=== PATIENT | male | born 1950 | race Caucasian/White ===

== ENCOUNTER 2018-04-25 12:43 | Outpatient (CLI) | payer MEDICARE | END 2018-04-25 23:59 | disposition home or self-care (01) | LOC: RAD 12:43 | PROVIDERS: ATTEND Nurse Practitioner | DX: M19.071 Primary osteoarthritis, right ankle and foot (principal) ==

== ENCOUNTER → 2018-07-29 | Outpatient (CLI) | payer MEDICARE ==
[~2018-07-29] MED LIST: LACT1CAP37 PO
[2018-07-29 09:28] LABS: BASOPHILS # (AUTO) 0.01 x10^3/uL (0-0.1); BASOPHILS % (AUTO) 0 % (0-1); EOSINOPHILS # (AUTO) 0.11 x10^3/uL (0-0.4); EOSINOPHILS % (AUTO) 2 % (1-7); LYMPHOCYTES # (AUTO) 1.28 x10^3/uL (1-3.4); LYMPHOCYTES % (AUTO) 21 % (22-44); MD NO; MEAN CORPUSCULAR HEMOGLOBIN 31.9 pg (27.5-34.5); MEAN CORPUSCULAR HGB CONC 34.6 g/dL (33.2-36.2); MEAN CORPUSCULAR VOLUME 92.3 fL (81-97); MEAN PLATELET VOLUME 6.6 fL (7.4-10.4); MONOCYTES # (AUTO) 0.42 x10^3/uL (0.2-0.8); MONOCYTES % (AUTO) 7 % (2-9); NEUTROPHILS # (AUTO) 4.39 x10^3/uL (1.8-6.8); NEUTROPHILS % (AUTO) 71 % (42-75); PLATELET COUNT 259 x10^3/uL (130-400); RED BLOOD COUNT 5.24 x10^6/uL (4.38-5.82); RED CELL DISTRIBUTION WIDTH 12.1 % (9.4-14.8)
[2018-07-29 09:39] LABS: INTERNATIONAL NORMALIZED RATIO 1.03 (0.93-1.1); PROTHROMBIN TIME 10.8 Seconds (9.6-11.5)
[2018-07-29 09:41] LABS: ANION GAP 8 mmol/L (5-15); CALCIUM 8.7 mg/dL (8.5-10.1); CHLORIDE 110 mmol/L (98-107); CREATININE 0.87 mg/dL (0.7-1.3)
[2018-07-29 10:21] LABS: HEMOGLOBIN A1C 4.9 % (4.2-6.3)
== END | disposition home or self-care (01) ==
LOC: STAR 08:11
PROVIDERS: ATTEND Orthopaedic Surgery
DX: Z01.818 Encounter for other preprocedural examination (principal); M17.12 Unilateral primary osteoarthritis, left knee
CPT/HCPCS: 36415; 80048; 83036; 85025; 85610; 85730; 87081; 93005

== ENCOUNTER 2018-08-02 06:01 | Day surgery (SDC) | payer MEDICARE ==
[~2018-08-02] VITALS: Ht 175.3 cm; Wt 79.0 kg
[2018-08-02] MEDS ORDERED: ACETAMINOPHEN 650 MG/20.3 ML UDC PO PRN (06:30)
[2018-08-02] MEDS ORDERED: ONDANSETRON 4 MG TABLET PO PRN (06:30)
[2018-08-02] MEDS ORDERED: SENNA/DOCUSATE TABLET PO PRN (06:30)
[2018-08-02] MEDS ORDERED: ZOLPIDEM 5MG TABLET PO PRN (06:30)
[2018-08-02] MEDS ORDERED: ONDANSETRON 2MG/ML, 2ML IV PRN ×2 (06:30→07:30)
[2018-08-02] MEDS ORDERED: SCOPOLAMINE PATCH, 1.5MG PATCH.TD72 TD ONE (06:30)
[2018-08-02] MEDS ORDERED: HYDROcodone/APAP 5/325 TABLET PO PRN (06:30)
[2018-08-02] MEDS ORDERED: OXYcodone IR 5MG TABLET PO PRN (06:30)
[2018-08-02] MEDS ORDERED: TRANEXAMIC ACID 100 MG/ML, 10ML ONE ×2 (06:32)
[2018-08-02] MEDS ORDERED: ROPIvacaine/PF 0.5%, 20 ML ONE (06:32)
[2018-08-02] MEDS ORDERED: KETOROLAC 60 MG/2 ML ONE (06:32)
[2018-08-02] MEDS ORDERED: SODIUM CHLORIDE 0.9% 50 ML ONE (06:33)
[2018-08-02] MEDS ORDERED: VANCOMYCIN 1,000 MG ONE (06:33)
[2018-08-02] MEDS ORDERED: EPINEPHRINE 1 MG/ML, 1ML ONE (06:33)
[2018-08-02] MEDS ORDERED: ROPivacaine/PF 0.2%, 10 ML ONE (06:54)
[2018-08-02] MEDS ORDERED: GABAPENTIN 300 MG CAPSULE PO ONE (07:00)
[2018-08-02] MEDS ORDERED: ACETAMINOPHEN 500 MG TABLET PO ONE (07:00)
[2018-08-02] MEDS: LACTATED RINGERS 1,000 ML IV SCH ×2 (07:14→11:07)
[2018-08-02] MEDS ORDERED: FENTANYL PF 250 MCG/5ML ONE ×2 (07:23→08:42)
[2018-08-02] MEDS ORDERED: MIDAZOLAM 1 MG/ML, 2ML ONE (07:23)
[2018-08-02] MEDS ORDERED: PROMETHAZINE 25 MG SUPP PR PRN (07:30)
[2018-08-02] MEDS ORDERED: PROMETHAZINE 25 MG/ML, 1ML IM PRN ×2 (07:30)
[2018-08-02] MEDS ORDERED: OXYcodone 5 MG/5 ML ORAL.SOL UDC PO PRN (07:30)
[2018-08-02] MEDS ORDERED: MORPHINE SULFATE 4 MG/ML, 1ML IVPush PRN (07:30)
[2018-08-02] MEDS ORDERED: PROMETHAZINE 12.5 MG SUPP PR PRN (07:30)
[2018-08-02] MEDS ORDERED: ONDANSETRON ODT 8 MG PO PRN (07:30)
[2018-08-02] MEDS ORDERED: MEPERIDINE/PF 25MG/0.5ML IVPush PRN (07:30)
[2018-08-02] MEDS ORDERED: hydrALAzine 20 MG/ML, 1ML IV PRN (07:30)
[2018-08-02] MEDS ORDERED: PROMETHAZINE 25 MG/ML, 1ML IV PRN (07:30)
[2018-08-02] MEDS ORDERED: HYDROmorphone 2 MG/ML, 1ML IVPush PRN (07:30)
[2018-08-02] MEDS ORDERED: LABETALOL 5MG/ML, 20ML IV PRN (07:30)
[2018-08-02] MEDS ORDERED: CEFAZOLIN 1,000 MG ONE (08:35)
[2018-08-02] MEDS ORDERED: PROPOFOL 10 MG/ML, 20ML ONE (08:35)
[2018-08-02] MEDS ORDERED: NEOSTIGMINE 1 MG/ML, 10ML ONE (08:35)
[2018-08-02] MEDS ORDERED: GLYCOPYRROLATE 0.2MG/1ML, 5ML ONE (08:35)
[2018-08-02] MEDS ORDERED: ROCURONIUM 10MG/ML,5ML ONE (08:35)
[2018-08-02] MEDS ORDERED: BISACODYL 10 MG SUPP PR PRN (09:00)
[2018-08-02] MEDS ORDERED: DOCUSATE 100 MG CAPSULE PO SCH (09:00)
[2018-08-02] MEDS ORDERED: MAGNESIUM HYDROXIDE 8%, 30ML UDC PO PRN (09:00)
[2018-08-02] MEDS ORDERED: MEPERIDINE/PF 25MG/ML,1ML ONE (09:46)
[2018-08-02] MEDS ORDERED: OXYcodone 5 MG/5 ML ORAL.SOL UDC ONE (09:46)
[2018-08-02] MEDS ORDERED: ONDANSETRON 2MG/ML, 2ML ONE (09:53)
[2018-08-02] MEDS ORDERED: FENTANYL PF 100 MCG/2ML ONE (10:02)
[2018-08-02] MEDS: FENTANYL PF 100 MCG/2ML IV PRN ×3 (10:04→10:15)
[2018-08-02] MEDS ORDERED: DIPHENHYDRAMINE 25 MG CAPSULE PO PRN (11:00)
[2018-08-02] MEDS ORDERED: NS + 20MEQ KCL 1,000 ML IV SCH (11:00)
[2018-08-02] MEDS ORDERED: HYDROmorphone 1 MG/ML, 1ML INJ IV PRN (11:00)
[2018-08-02 13:10] VITALS: BP 123/67
[2018-08-02] MEDS ORDERED: TAMSULOSIN 0.4 MG CAP.ER.24H PO ONE (15:00)
[2018-08-02] MEDS ORDERED: CEFAZOLIN 2,000 MG in SODIUM CHLORIDE 0.9% 50 ML IVPB SCH (17:00)
[2018-08-02] MEDS ORDERED: OXYC5TAB3 PO (17:42)
[2018-08-02] MEDS ORDERED: TRAM50TA2 PO (17:47)
[2018-08-02] MEDS ORDERED: MELO7.5T31 PO (17:48)
[2018-08-02] MEDS ORDERED: ASPIRIN 81 MG TABLET EC PO SCH (18:00)
[2018-08-03] MEDS ORDERED: DEXAMETHASONE 4 MG/ML, 1ML IVPush SCH (06:00)
== END 2018-08-02 18:45 | disposition home or self-care (01) ==
LOC: OUT 06:01 → EDSTATUS 07:00 → 4NOR 10:38 → OUT 18:45
PROVIDERS: ATTEND Orthopaedic Surgery
DX: M17.12 Unilateral primary osteoarthritis, left knee (principal); T84.84XA Pain due to internal orthopedic prosthetic devices, implants and grafts, initial encounter; Y83.8 Other surgical procedures as the cause of abnormal reaction of the patient, or of later complication, without mention of misadventure at the time of the procedure; Y92.89 Other specified places as the place of occurrence of the external cause
CPT/HCPCS: 20680; 27447; 64447; 97161; C1713; C1776; J0171; J0690; J1885; J2175; J2250; J2405; J2704; J2710; J2795; J3010; J3370; J3480; J3490; J7120; G0378